=== PATIENT | female | born 1970 | race Caucasian/White ===

== ENCOUNTER → 2017-01-07 | Outpatient (CLI) | payer OTHER ==
[~2017-01-07] MED LIST: SYN75 PO
[2017-01-09 00:33] LABS: CHLAMYDIA TRACH RNA*** NOT DETECTED (NOT DETECTED); GC (NEIS GONORRHOEAE)RNA** NOT DETECTED (NOT DETECTED)
== END | disposition home or self-care (01) ==
LOC: C.LABSPEC 10:52
PROVIDERS: ATTEND Obstetrics & Gynecology
DX: N89.8 Other specified noninflammatory disorders of vagina (principal)

== ENCOUNTER → 2017-03-09 | Outpatient (CLI) | payer OTHER ==
--- NOTE | 2017-03-10 08:02 | MAMMOGRAPHY REPORT ---
BILATERAL DIGITAL SCREENING MAMMOGRAM TOMOSYNTHESIS WITH CAD: 03/09/2017 CLINICAL HISTORY: Routine screening. Baseline exam. TECHNIQUE: Breast tomosynthesis in addition to standard 2D mammography was performed. Current study was also evaluated with a Computer Aided Detection (CAD) system. COMPARISON: No prior exams were available for comparison. BREAST COMPOSITION: The tissue of both breasts is heterogeneously dense, which may obscure small mas ses. FINDINGS: There is are possible grouped microcalcifications in the lower inner middle one third of t he left breast, for which additional spot magnification views are recommended. A 12 mm asymmetry pro jects over the inferior right pectoralis muscle on the MLO view, in the superior posterior aspect of the breast. Although this could represent normal fiberglass glandular tissue, as no definite mass is seen on the corresponding tomosynthesis images, additional spot compression, stenosis views and poss ibly ultrasound are recommended. No other suspicious mass, architectural distortion or cluster of microcalcifications is seen bilatera lly. IMPRESSION: ACR BI-RADS CATEGORY 0: INCOMPLETE EVALUATION: NEED ADDITIONAL IMAGING EVALUATION The right breast superior, posterior asymmetry and left breast microcalcifications need additional im aging evaluation. The patient will be called to schedule an appointment. Approximately 10% of breast cancers are not detected with mammography. A negative mammographic report should not delay biopsy if a clinically suggestive mass is present. Brittney Edward M.D. ay/:03/09/2017 14:37:16 System Administrator: Felecia JONES)(Henrietta), [facility] letter sent: Addl Imaging 0 BI-RADS Code: ACR BI-RADS Category 0: Incomplete Evaluation: Need Additional Imaging Evaluation
== END | disposition home or self-care (01) ==
LOC: C.MAMM 13:59
PROVIDERS: ATTEND Physician Assistant
DX: R92.8 Other abnormal and inconclusive findings on diagnostic imaging of breast (principal); N64.89 Other specified disorders of breast; R92.0 Mammographic microcalcification found on diagnostic imaging of breast

== ENCOUNTER → 2017-03-17 | Outpatient (CLI) | payer OTHER ==
--- NOTE | 2017-03-17 14:14 | MAMMOGRAPHY REPORT ---
BILATERAL DIGITAL DIAGNOSTIC MAMMOGRAM TOMOSYNTHESIS AND TARGETED RIGHT ULTRASOUND: 03/17/2017 CLINICAL HISTORY: Left calcifications. Right Asymmetry. TECHNIQUE: Spot magnification left CC and ML views; spot compression right MLO tomosynthesis images w ere obtained. COMPARISON: Comparison is made to exam dated: 03/09/2017 mammogram - [facility]. BREAST COMPOSITION: The tissue of both breasts is heterogeneously dense, which may obscure small mas ses. FINDINGS: Spot magnification views of the left breast demonstrate faint punctate and amorphous microc alcifications loosely grouped in the lower inner middle one third of the breast, measuring approximat thai 11 mm in maximum dimension. Another single microcalcification is located 16 mm superior to the g rouping. No obvious associated architectural distortion or mass. The microcalcifications are indete rminate, given that no prior mammograms are available to document stability. Spot compression MLO tomosynthesis images of the right breast demonstrate partial effacement of the a symmetry in the far posterior superior breast projecting over the pectoralis muscle on the MLO view. No obvious architectural distortion or suspicious calcification. Further evaluation with ultrasound was performed throughout the superior right breast. Targeted ultrasound was performed in the superior right breast. Note is made of benign duct ectasia in the periareolar breast. Scattered anechoic simple cysts are identified, compatible with fibrocyst ic change. In particular within the 9:00 axis, there is a 3.9 mm anechoic cyst. In the 11:00 right breast, 4 cm from the nipple, a 4.1 mm anechoic cyst is seen. There is an angular an ill-defined hyp oechoic lesion that could simply represent normal tissue or stromal fibrosis in the 9:00 axis, 6 cm f rom the nipple, measuring 4.2 x 5.1 mm. It is unclear if this is related to the mammographic asymmet ry or is incidental. IMPRESSION: ACR BI-RADS CATEGORY 0: INCOMPLETE EVALUATION: NEED ADDITIONAL IMAGING EVALUATION, TARG ETED ULTRASOUND ACR BI-RADS CATEGORY 0: INCOMPLETE EVALUATION: NEED ADDITIONAL IMAGING EVALUATION 1. There are loosely grouped punctate and amorphous microcalcifications measuring 11 mm in the lower inner quadrant of the left breast. These may represent benign calcifications, such as those related to fibrocystic changes. However, no prior mammograms are available to assess stability and therefor e they remain indeterminate. 2. There is partial effacement of an asymmetry in the far posterior superior right breast on the MLO views. An ill-defined hypoechoic 6 mm lesion is seen in the 9:00 right breast on ultrasound, but it is unclear if this correlates with the mammographic asymmetry, and it is unclear id this may simply represent stromal fibrosis or normal tissue. Although ultimately biopsy may be needed in each breast , definitive evaluation with a contrast-enhanced breast MRI is recommended to assess for any suspicio us enhancing mass in the 9:00 right breast. If there is no enhancement in this area, the asymmetry m ay simply represent the patient's baseline. Likewise, if there is no enhancement in the left inferio r breast in the area of microcalcifications, could consider close follow-up exams versus stereotactic biopsy. These results and recommendations were discussed with the patient at the time of the exam. An MRI is needed for further evaluation. Approximately 10% of breast cancers are not detected with mammography. A negative mammographic report should not delay biopsy if a clinically suggestive mass is present. Brittney Edward M.D. ay/:03/17/2017 12:13:59 Cardiothoracic Surgeon: Felecia MORALES(R)(M), [facility] letter sent: Addl Imaging 0 BI-RADS Code: ACR BI-RADS Category 0: Incomplete Evaluation: Need Additional Imaging Evaluation Ult eder BI-RADS: ACR BI-RADS Category 0: Incomplete Evaluation: Need Additional Imaging Evaluation
== END | disposition home or self-care (01) ==
LOC: C.MAMM 09:53
PROVIDERS: ATTEND Internal Medicine
DX: N64.9 Disorder of breast, unspecified (principal); R92.0 Mammographic microcalcification found on diagnostic imaging of breast

== ENCOUNTER → 2017-04-14 | Outpatient (CLI) | payer OTHER | END | disposition home or self-care (01) | LOC: C.LABSPEC 15:47 | PROVIDERS: ATTEND Physician Assistant | DX: N76.0 Acute vaginitis (principal) ==

== ENCOUNTER → 2017-06-30 | Outpatient (CLI) | payer OTHER ==
--- NOTE | 2017-06-30 12:20 | MAMMOGRAPHY REPORT ---
ULTRASOUND OF RIGHT BREAST: 06/30/2017 CLINICAL HISTORY: 47-year-old woman found to have left breast calcifications and right breast asymmet ry on baseline screening mammogram. An ill-defined hypoechoic area was identified in the 9:00 right breast on ultrasound and a grouping of faint punctate and amorphous microcalcifications were identifi ed in the 9:00 left breast on spot magnification views. An MRI was recommended for further character ization but the patient has a severe phobia of needles and did not think she could tolerate the IV in jection of gadolinium for a diagnostic breast MRI. She also does not think she could tolerate a biop sy. Therefore, she presents for a very short follow-up of the sonographic finding in the 9:00 right breast. COMPARISON: Comparison is made to exams dated: 03/17/2017 ultrasound, 03/17/2017 mammogram, and 017 mammogram - [facility]. FINDINGS: Targeted ultrasound was performed in the 9:00 right breast, 6 cm from the nipple, to reeva luate the irregular hypoechoic lesion seen on prior ultrasound. In the 9:00 right breast, 6 cm from the nipple, there is an irregular, parallel oriented hypoechoic possible mass versus normal tissue me asuring 4.5 x 2.6 x 3.8 mm. Visually, this is decreased in prominence when comparing to the prior ul trasound. It is also decreased based on size measurements, despite slight differences in measuring t echnique. Previous measurements were 4.2 x 5.1 mm. Although this could represent benign fiber gland ular tissue, given that it is slightly hypoechoic and irregular comparing to the adjacent parenchymal tissue, another close follow-up targeted ultrasound is recommended. Would recommend bilateral tomos ynthesis mammograms including left breast spot magnification views and right breast targeted ultrasou nd in 3 more months, to ensure stability for total of 6 months based on the 03/09/2017 screening mamm ograms. IMPRESSION: ACR-BI-RADS CATEGORY 3: PROBABLY BENIGN - FOLLOW-UP RECOMMENDED There is decreased in visual prominence and size of an irregular hypoechoic 4.5 mm lesion in the 9:00 right breast, 6 cm from the nipple identified on ultrasound. Another three-month follow-up targeted ultrasound is recommended to ensure longer stability. Would also recommend bilateral diagnostic dean osynthesis mammograms and left spot magnification views to ensure stability of other mammographic fin dings identified on the patient's baseline screening exam. She does not think she would be able to t olerate an IV injection for the MRI or a needle biopsy, given her severe phobia of needles. Therefor e, we will continue to closely follow the above findings. These results and recommendations were discussed with the patient at the time of the exam. She tends of a schedule the follow-up appointment prior to leaving our department. Brittney Edward M.D. ay/:06/30/2017 10:20:50 Meat Manager: Mildred JONES)(Henrietta), [facility] letter sent: Follow Up Recommended 3 BI-RADS Code: ACR-BI-RADS Category 3: Probably Benign
== END | disposition home or self-care (01) ==
LOC: C.MAMM 09:06
PROVIDERS: ATTEND Internal Medicine
DX: N63.10 Unspecified lump in the right breast, unspecified quadrant (principal); R92.8 Other abnormal and inconclusive findings on diagnostic imaging of breast

== ENCOUNTER → 2017-10-14 | Outpatient (CLI) | payer OTHER | END | disposition home or self-care (01) | LOC: C.LABSPEC 16:54 | PROVIDERS: ATTEND Physician Assistant | DX: L29.8 Other pruritus (principal) ==

== ENCOUNTER → 2017-10-16 | Outpatient (CLI) | payer OTHER ==
--- NOTE | 2017-10-16 13:59 | MAMMOGRAPHY REPORT ---
BILATERAL DIGITAL DIAGNOSTIC MAMMOGRAM TOMOSYNTHESIS WITH CAD AND TARGETED RIGHT ULTRASOUND: 8 CLINICAL HISTORY: Short interval follow-up of right breast hypoechoic lesion and left breast calcific ations. The patient denies any problems or other complaints. TECHNIQUE: Breast tomosynthesis in addition to standard 2D mammography was performed. Current study was also evaluated with a Computer Aided Detection (CAD) system. Bilateral CC and MLO 2-D and tomosy nthesis images and spot magnification left CC and ML views were obtained. COMPARISON: Comparison is made to exams dated: 06/30/2017 ultrasound, 03/17/2017 ultrasound, 03/17/2017 mammogram, and 03/09/2017 mammogram - [facility]. BREAST COMPOSITION: The tissue of both breasts is heterogeneously dense, which may obscure small mas ses. FINDINGS: Spot magnification views of the left breast again demonstrate faint loosely grouped calcif ications within the left medial breast at approximately 9:00, which are not significantly changed com pared to spot magnification views dated 03/17/2017. A few other scattered benign-appearing calcificat ions are seen on the spot magnification views. The calcifications are probably benign and recommend another short interval follow-up to ensure stability. The remainder of both breasts are stable mammographically compared to prior exams, without suspicious masses, calcifications, or areas of architectural distortion noted. Asymmetry within the right supe rior posterior breast is less prominent and has the appearance of normal fibroglandular tissue on the current tomosynthesis images. Targeted ultrasound was performed of the area of the previously seen hypoechoic region. In the right breast at 9:00, approximately 6 cm from the nipple, there is an irregular hypoechoic lesion which me asures 4 x 3 x 5 mm. This is stable in size and appearance dating back to at least the February 2017 exa m. It is unclear if this represents normal fibroglandular tissue versus a mass. Given the irregular shape, I would typically recommend biopsy of the mass to exclude the possibility of malignancy. On discussion with the patient, she has a severe needle phobia and would not tolerate a needle biopsy or IV injection for an MRI. Instead she would prefer to continue following the lesion. IMPRESSION: ACR-BI-RADS CATEGORY 3: PROBABLY BENIGN, TARGETED ULTRASOUND ACR-BI-RADS CATEGORY 3: PRO BABLY BENIGN 1. Loosely grouped calcifications in the left medial breast are stable compared to the February 2017 exa m and are probably benign. Recommend follow-up diagnostic mammograms of the left breast in 6 months to confirm longer stability. 2. Irregular 5 mm hypoechoic lesion in the right 9:00 breast is not significantly changed dating amadou k to the February 2017 exam. Although this could represent normal fibroglandular tissue, I would recomme nd ultrasound-guided biopsy of the lesion to exclude the possibility of malignancy. However, the pat ient has a severe needle phobia and would not tolerate a needle biopsy or IV injection for an MRI, an d would prefer to continue following the lesion. Therefore, recommend follow-up diagnostic mammogram s and targeted ultrasound of the right breast in 6 months to reevaluate. Overall, recommend bilateral diagnostic tomosynthesis mammograms and repeat targeted ultrasound of th e right breast in 6 months. The patient has been verbally notified of the results. Approximately 10% of breast cancers are not detected with mammography. A negative mammographic report should not delay biopsy if a clinically suggestive mass is present. Kayleen Chavis M.D. ah/:10/16/2017 11:53:02 Beater Room Supervisor: Nabila Peng, [facility] letter sent: Follow Up Recommended 3 BI-RADS Code: ACR-BI-RADS Category 3: Probably Benign Ultrasound BI-RADS: ACR-BI-RADS Category 3: Pr obably Benign
== END | disposition home or self-care (01) ==
LOC: C.MAMM 11:01
PROVIDERS: ATTEND Internal Medicine
DX: R92.1 Mammographic calcification found on diagnostic imaging of breast (principal); N63.11 Unspecified lump in the right breast, upper outer quadrant